=== PATIENT | female | born 1965 | race Two or more races ===

== ENCOUNTER 2024-02-16 20:00 | Emergency (ER) | payer BC ==
[~2024-02-16] VITALS: Ht 162.6 cm; Wt 77.1 kg
[2024-02-16] MEDS ORDERED: 0.9 % SODIUM CHLORIDE 500 ML IV ONE (20:30)
[2024-02-16] MEDS ORDERED: FAMOTIDINE/PF 20 MG/2 ML VIAL IV ONE (20:30)
[2024-02-16] MEDS ORDERED: ONDANSETRON HCL 2 MG/ML VIAL IV ONE (20:30)
[2024-02-16] MEDS ORDERED: FAMOTIDINE/PF 20 MG/2 ML VIAL ONE (20:42)
[2024-02-16] MEDS ORDERED: ONDANSETRON HCL 2 MG/ML VIAL ONE (20:42)
[2024-02-16] MEDS ORDERED: LACTOBACILLUS ACIDOPHILUS 1 CAP CAP PO ONE ×3 (20:42→20:45)
[2024-02-16] MEDS ORDERED: DICYCLOMINE HCL 10 MG CAPSULE PO ONE ×2 (20:42→20:45)
[2024-02-16 21:15] LABS: HEMATOCRIT 35.8 % (36.0-45.00); HEMOGLOBIN 12.4 g/dL (12.0-15.00); MEAN CELL VOLUME 88.9 fL (80.00-100.00); MEAN CORPUSCULAR HEMOGLOBIN 30.8 pg (27.00-32.0); MEAN CORPUSCULAR HGB CONC 34.7 g/dl (32.0-36.0); PLATELET COUNT 240 K/uL (150-450); RED BLOOD COUNT 4.03 M/uL (4.00-6.00); RED CELL DISTRIBUTION WIDTH 13.7 % (11.5-14.5)
[2024-02-16 21:20] LABS: ALBUMIN 3.6 gm/dL (3.4-5.0); BILIRUBIN TOTAL 0.47 mg/dL (0.3-1.2); CALCIUM 9.2 mg/dL (8.5-10.1); CREATININE SERUM 1.6 mg/dL (0.55-1.02); GFR 32.88; GLOBULINA 4.8 G/DL (2.4-3.5); POTASSIUM 3.08 mEq/L (3.5-5.1); TOTAL PROTEIN 8.4 gm/dL (6.4-8.2)
[2024-02-16] MEDS ORDERED: PEPCID AC20 MG PO (22:43)
[2024-02-16] MEDS ORDERED: INTESTINEX680 M1 PO (22:43)
== END 2024-02-16 23:51 ==
LOC: ER 20:02
PROVIDERS: Nurse Practitioner Family
DX: B34.9 Viral infection, unspecified (principal); E86.0 Dehydration; R11.2 Nausea with vomiting, unspecified; R19.7 Diarrhea, unspecified